=== PATIENT | male | born 1950 | race Caucasian/White ===

== ENCOUNTER 2023-04-23 20:16 | Inpatient (IN) | payer MEDICARE, OTHER ==
[~2023-04-23] VITALS: Ht 184 cm; Wt 80.5 kg
[2023-04-23 22:58] VITALS: BP 143/77
[2023-04-23] MEDS ORDERED: ACET500 PO (23:14)
[2023-04-23] MEDS ORDERED: AMLO10 PO (23:15)
[2023-04-23] MEDS ORDERED: BENZ2 PO (23:15)
[2023-04-23] MEDS ORDERED: ESCI10 PO (23:16)
[2023-04-23] MEDS ORDERED: BUPR150ER PO (23:16)
[2023-04-23] MEDS ORDERED: HALO2 PO (23:17)
[2023-04-23] MEDS ORDERED: LORA10ER PO (23:17)
[2023-04-23] MEDS ORDERED: METO25 PO (23:18)
[2023-04-23] MEDS ORDERED: OMEP20ER PO (23:19)
[2023-04-23] MEDS ORDERED: MIRALAX17 GM PO (23:19)
[2023-04-23] MEDS ORDERED: ROSU5 PO (23:20)
[2023-04-23] MEDS ORDERED: NITR100CA PO (23:29)
[2023-04-24 03:42] VITALS: BP 113/65; BP 13/65
[2023-04-24 04:07] LABS: BASOPHILS ABSOLUTE AUTO 0.02 K/mm3 (0.00-0.23); BASOPHILS PERCENT AUTO 0 % (0-2); EOSINOPHILS ABSOLUTE AUTO 0.37 K/mm3 (0.00-0.68); EOSINOPHILS PERCENT AUTO 5 % (0-6); Hematocrit 32.1 % (37.0-53.0); Hemoglobin 10.5 g/dL (13.5-17.5); IMMATURE GRAN ABSOLUTE AUTO 0.07 K/mm3 (0.00-0.10); IMMATURE GRAN PERCENT AUTO 1 % (0-1); LYMPHOCYTES ABSOLUTE AUTO 0.81 K/mm3 (0.84-5.20); LYMPHOCYTES PERCENT AUTO 10 % (21-46); MONOCYTES ABSOLUTE AUTO 0.32 K/mm3 (0.16-1.47); MONOCYTES PERCENT AUTO 4 % (4-13); Mean Corpuscular HGB 29.7 pg (26.0-34.0); Mean Corpuscular HGB Conc 32.7 g/dL (31.5-36.5); Mean Corpuscular Volume 91 fL (80-100); Mean Platelet Volume 9.5 fL (9.1-12.4); NEUTROPHILS ABSOLUTE AUTO 6.41 K/mm3 (1.96-9.15); NEUTROPHILS PERCENT AUTO 80 % (41-73); Platelet Count 229 K/mm3 (150-400); RDW Coefficient Variation 13.2 % (11.7-14.2); Red Blood Cell Count 3.54 M/mm3 (4.30-5.90)
[2023-04-24 04:38] LABS: Magnesium, Blood 2.2 mg/dL (1.6-2.4)
[2023-04-24 04:39] LABS: Albumin/Globulin Ratio 0.5 (0.8-1.8); Bilirubin, Total 0.5 mg/dL (0.1-1.0); Bun/Creatinine Ratio 14.3 (12.0-20.0); Calcium, Blood 8.4 mg/dL (8.5-10.1); Creatinine, Blood 1.89 mg/dL (0.60-1.20); Globulin, Blood 4.3 g/dL (2.2-4.0); Potassium, Blood 4.4 mmol/L (3.5-5.5); Total Protein, Blood 6.3 g/dL (6.4-8.2)
--- NOTE | 2023-04-24 05:21 | NUR ---
ARRIVAL TO PCU 19 PT ARRIVED TO PCU 19 AT APPROXIMATELY 2210. PT SLID OVER FROM AMBULANCE GURNEY TO HOSPITAL BED BY 4 CLINICAL STAFF MEMBERS. PT ARRIVED WITH CHEST TUBE IN R LATERAL CHEST WALL. UPON ARRIVAL, THIS RN AND MUNICIPAL SERVICES MANAGER CHANGED THE WATER SEAL AND DRESSING AT INSERTION SITE AND CONNECTED WATER SEAL TO CONTINUOUS SUCTION. BP STABLE, SINUS 80's, DENIES CP/PRESSURE. SpO2> 92% ON 2L VIA NC, DENIES SOB. SUPRAPUBIC CATH IN PLACE UPON ARRIVAL, CATH CARE PROVIDED, STAT LOCK PLACED. A&O TO SELF, ALMOST COMPLETELY NON-VERBAL, IS ABLE TO ANSWER YES/NO QUESTIONS AND SAY SMALL PHRASES. COOPERATIVE WITH CARE. ORIENTED TO CALL LIGHT/UNIT, BED IN LOWEST POSITION, BED ALARM ON.
--- NOTE | 2023-04-24 05:30 | NUR ---
SHIFT SUMMARY SEE PREVIOUS NOTE. CHEST TUBE IN R LATERAL CHEST WALL REMAINED IN PLACE AND PATENT. SpO2> 92% ON 2L VIA NC, DENIES SOB. BP STABLE, SINUS 80's, DENIES CP/PRESSURE. SUPRAPUBIC CATH IN PLACE UPON ARRIVAL, CATH CARE PROVIDED, STAT LOCK PLACED. A&O TO SELF, ALMOST COMPLETELY NON-VERBAL, IS ABLE TO ANSWER YES/NO QUESTIONS AND SAY SMALL PHRASES. COOPERATIVE WITH CARE. NO OTHER EVENTS, WILL REPORT TO ONCOMING RN.
[2023-04-24 07:43] VITALS: BP 115/66
[2023-04-24 11:24] VITALS: BP 113/66
--- NOTE | 2023-04-24 11:28 | NUR ---
AM NOTES: PT ONLY ALERT TO SELF MANAGER PROPERTY ONLY STATE FIRST NAME, ANSWERS MOSTLY CLOSE ENDED QUESTIONS, PER CAREGIVER KAILEY THAT'S PT'S BASELINE UNABLE TO CONSENT FOR CHEST TUBE PLACEMENT PROCEDURE BROTHER SALVATORE (POA) CONSENTED THE PROCEDURE. ANOTHER CHEST TUBE PLACED AT RIGHT UPPER ANTERIOR HOOKED UP TO CONTINUOUS SUCTION BUBBLING AT TIMES ESPECIALLY WHEN PT IS REPOSITIONED. ST VISHAL ORDERED PT ON PUREE AND THICKENED DIET AT BASELINE, BEDSIDE SWALLOW EVAL DONE AFTER ORAL CARE THIS MORNING, PT HAD A GAGGING ANG COUGHING EPISODE, PER CAREGIVER PT NORMALLY COUGH WITH HIS FOODS. PT KEPT NPO AT THIS TIME. SOAP SUDS ENEMA ORDERED FOR STOOL IMPACTION. VITALS HAS BEEN STABLE HRR SR AT 90'S, SBP 115. SATS ABOVE 90% ON RA, AFEBRILE. SUPRAPUBIC CATHETER IN PLACE DRAINING YELLOW URINE. PT RESTING IN BED AT THIS TIME, WILL CONTINUE TO MONITOR
[2023-04-24 15:33] VITALS: BP 101/60
--- NOTE | 2023-04-24 18:09 | NUR ---
PT SUMMARY: SEE AM NOTES: PT HAD AN EXTRA LARGE BOWEL MOVEMENT AFTER THE SOAP SUDS ENEMA, PT HAS BEEN TOLERATING DIET WITH GREAT APPETITE, SUPRAPUBIC LARSON REMAINED INTACT DRAINED 650MLS OF LINSEY URINE FOR THE SHIFT, 2 CHEST TUBES DRAINING SEROUS FLUID BOTH HOOKED UP TO SUCTION REPEAT CHEST RAY IN AM. PT WAS MEDICATED ONCE WITH TYLENOL FOR CHEST/RIB PAIN, PT RESTED WELL AFTER. BROTHER SALVATORE CAME IN TO VISIT THE PT, WAS GIVEN UPDATE REGARDING PT'S STATUS. VITALS REMAINED STABLE. PT HAS BEEN REPOSITIONED Q2HRS FOR COMFORT. NO OTHER ISSUES REPORTED, CALL LIGHTS IN REACH WILL REPORT TO ONCOMING SHIFT
[2023-04-24 20:37] VITALS: BP 117/70
[2023-04-24 23:14] VITALS: BP 102/64
[2023-04-25 03:17] VITALS: BP 110/65
[2023-04-25 04:45] LABS: Albumin, Blood 1.9 g/dL (3.4-5.0); Anion Gap 4 mmol/L (6-16); Blood Urea Nitrogen 32 mg/dL (8-24); Bun/Creatinine Ratio 13.9 (12.0-20.0); CO2, Blood 25 mmol/L (21-32); Calcium, Blood 8.4 mg/dL (8.5-10.1); Chloride, Blood 111 mmol/L (98-108); Glomerular Filtration Rate 30 (60-); Glucose, Blood 101 mg/dL (70-99); Phosphorus, Blood 3.9 mg/dL (2.5-4.9); Potassium, Blood 4.5 mmol/L (3.5-5.5); Sodium, Blood 140 mmol/L (136-145)
--- NOTE | 2023-04-25 05:16 | NUR ---
SHIFT SUMMARY CHEST TUBES IN R LATERAL AND R ANTERIOR CHEST WALL REMAINED IN PLACE AND PATENT. SpO2> 92% RA, DENIES SOB. BP STABLE, SINUS 80's, DENIES CP/PRESSURE. SUPRAPUBIC CATH PATENT, CATH CARE PROVIDED, DRAINING TO GRAVITY. NO BM THIS SHIFT. A&O TO SELF, PERSON, AND PLACE; ALMOST COMPLETELY NON-VERBAL, IS ABLE TO ANSWER YES/NO QUESTIONS AND SAY SMALL PHRASES. COOPERATIVE WITH CARE. NO OTHER EVENTS, WILL REPORT TO ONCOMING RN.
[2023-04-25 08:15] VITALS: BP 118/74
[2023-04-25 12:34] VITALS: BP 110/63
[2023-04-25 15:24] VITALS: BP 104/64
--- NOTE | 2023-04-25 17:43 | NUR ---
SHIFT SUMMARY SLEEPS WHEN NOT IN ROOM. WAKES EASILY. ABLE TO ANSWER SOME YES OR NO QUESTIONS. UNABLE TO ANSWER MOST ORIENTATION QUESTIONS. TELE NSR 80'S, BP STABLE. ROOM AIR. CHEST TUBE TO RIGHT UPPER CHEST WALL AND RIGHT LATERAL CHEST WALL. NO CREPITUS, NO AIR LEAK. LS DIM TO RIGHT SIDE, NO WHEEZE. TOLERATING SOFT DIET AND THICKENED LIQUIDS PER SPEECH THERAPY. REPOSITIONED Q2 IN BED. NO BM THIS SHIFT, BOWEL CARE CONTINUES. CHRONIC SUPRAPUBIC CATH DRAINING CLEAR YELLOW URINE. DR DAVE ROUNDED ON PATIENT, PLAN FOR POSSIBLY REMOVING ONE OR BOTH CHEST TUBES TOMORROW 04/26/23. PNEUMO IMPROVING ON XRAY FROM YESTERDAY. WILL REPORT TO PHOTOCOPYING EQUIPMENT REPAIRER RN.
[2023-04-25 20:23] VITALS: BP 105/71
--- NOTE | 2023-04-25 21:53 | NUR ---
CARE ASSUMPTION this rn assumed care at 1900. vital signs stable. tele sr. patient is alert and oriented x3. patient is aware that he is at the hospital in [place], but unable to tell this rn why. patient reports no pain, chest pain, or shortness of breath. patient has two chest tubes to right lung, lateral and anterior. patient has suprabupic catheter, that is draining toney/yellow urine. see shift assessment for further detials. plan of care is up to date.
[2023-04-25 23:15] VITALS: BP 114/70
[2023-04-26 03:22] VITALS: BP 110/65
[2023-04-26 04:11] LABS: Anion Gap 4 mmol/L (6-16); Blood Urea Nitrogen 33 mg/dL (8-24); Bun/Creatinine Ratio 13.3 (12.0-20.0); CO2, Blood 26 mmol/L (21-32); Calcium, Blood 8.7 mg/dL (8.5-10.1); Chloride, Blood 110 mmol/L (98-108); Creatinine, Blood 2.48 mg/dL (0.60-1.20); Glomerular Filtration Rate 27 (60-); Glucose, Blood 101 mg/dL (70-99); Phosphorus, Blood 4.1 mg/dL (2.5-4.9); Potassium, Blood 4.5 mmol/L (3.5-5.5); Sodium, Blood 140 mmol/L (136-145)
--- NOTE | 2023-04-26 05:03 | NUR ---
shift summary patient neuro remains unchaged. vital signs stable. tele sr. reposition q2hour. no acute changes. plan of care remains up to date. call light within reach and bed in lowest position.
[2023-04-26 08:10] VITALS: BP 123/77
[2023-04-26 13:31] VITALS: BP 109/62
[2023-04-26 16:32] VITALS: BP 110/64
--- NOTE | 2023-04-26 17:04 | NUR ---
Spoke with Primary RN Bhavesh and discussed case. Pt failed swallow study and family would like Pt to continue PO intake and would not want PEG tube placement. Family may benefit from goals of care conversation including considering comfort care and hospice. Pt requires assistance with supervision for feeding, is incontinent of bowel, has chronice suprapubic Catheter, assistance with bathing, and dressing. Pt unable to have meaningful conversations and answers yes or no questions. Pt resting in bed with his eyes closed. Pt left undisturbed at this time. Pt appears comfortable with no S/S of distress at this time. Called and spoke with Pt's brother Atul who reports being Pt's court appointed guardian. Engaged in therapeutic conversation regarding goals of care. Brief gentle education on disease process including trajectory. Discussed considering comfort care and hospice. Educated on hospice and comfort care philosophy. Brother Atul reports this would be Pt's wishes. Atul elects to place Pt on comfort care and would like a hospice referral started for when Pt is D/C from the hospital. Spoke with Dr Aranda and discussed case. Placed comfort care order per Dr Aranda. Plan to optimize Pt before D/C from the hospital and maintenance medications will continue. Pt does not appear to be in any distress at this time. If condition changes then will consider comfort medications as needed. Palliative Care will remain available
--- NOTE | 2023-04-26 18:42 | NUR ---
SHIFT SUMMARY PATIENT SLEEPS OFTEN, WAKES EASILY, SLOW TO RESPOND, ONE-WORD ANSWERS, SHORT PHRASES, NEVER SPEAKS IN FULL SENTENCES. LATERAL CHEST TUBE DC'D BY AYAKA DAVE AT BEDSIDE. APICAL CHEST TUBE PLACED TO WATER SEAL. CXR ORDERED FOR AM. DR SIMPSON TO ROUND AND REMOVE CHEST TUBE IF AM CXR LOOKS GOOD, DR DAVE RECOMMENDS CXR CHECKED AFTER REMOVAL WELL. THEN OKAY TO DISCHARGE FROM SURGERY STANDPOINT. SPEECH CONDUCTED A BARIUM SWALLOW, SWALLOW FUNCTION IS VERY POOR AND FOOD STICKS IN ESOPHAGUS. RECOMMENDS NPO. SPEECH CALLED TOYCARLOS AND BROTHER "SALVATORE" WHO STATED THEY WOULD NOT PURSUE PEG TUBE OR OTHER MEANS OF NUTRITION. PALLIATIVE CARE CONSULTED, SPOKE WITH BROTHER, MAGALYS COMPLETED AND SIGNED BY DR LEWIS, PATIENT MADE COMFORT CARE SO THAT HE CAN CONTINUE HIS PUREED DIET DESPITE HIGH ASPIRATION RISK. PATIENT DOES FEED HIMSELF AFTER SET UP AND HAS GOOD APPETITE. WORKED WELL WITH PT/OT. SBA WITH FWW UP TO CHAIR. SUPRAPUBIC CATH DRAINING TO GRAVITY CLEAR YELLOW URINE. ATTENDS IN PLACE. NEW IV PLACED AND IV FLUID RUNNING FOR LOW KIDNEY FUNCTION. THE [facility] HE LIVES IS ABLE AND WILLING TO TAKE HIM BACK. DISCHARGE CAN BE ARRANGED TOMORROW 04/27/23 BY JOSE GASCA, GILBERTO DRILLING ASSISTANT. SURGICAL FLOOR STATUS, COMFORT CARE, NO TELE. WILL REPORT TO DIRECTOR OF CASEWORK SERVICES RN.
[2023-04-26 20:21] VITALS: BP 118/66
--- NOTE | 2023-04-26 22:12 | NUR ---
care assumption this rn assumed care at 1900. vital signs stable. surgical status no tele. patient is alert and oriented to place, self, and person. patient reports no pain, chest pain/pressure or shortness of breath. patient has lateral chest tube in place hooked to water seal. see shift assessment for further detials. plan of care is up to date at this time.
[2023-04-27 03:10] VITALS: BP 105/69
[2023-04-27 04:20] LABS: Anion Gap 3 mmol/L (6-16); Blood Urea Nitrogen 30 mg/dL (8-24); Bun/Creatinine Ratio 14.5 (12.0-20.0); CO2, Blood 25 mmol/L (21-32); Calcium, Blood 8.1 mg/dL (8.5-10.1); Chloride, Blood 112 mmol/L (98-108); Creatinine, Blood 2.07 mg/dL (0.60-1.20); Glomerular Filtration Rate 34 (60-); Glucose, Blood 99 mg/dL (70-99); Phosphorus, Blood 3.9 mg/dL (2.5-4.9); Potassium, Blood 4.7 mmol/L (3.5-5.5); Sodium, Blood 140 mmol/L (136-145)
--- NOTE | 2023-04-27 06:14 | NUR ---
shift summary no acute changes this shift. vitals remain stable. lateral chest tube remains in place, water seal. suprapubic catheter in place draining to gravity. plan of care remains up to date
[2023-04-27 07:41] VITALS: BP 134/81
--- NOTE | 2023-04-27 17:57 | NUR ---
UPDATE PT REMAINS AWAKE AND ALERT. VS STABLE. PT HAS DENIED PAIN ALL SHIFT. DR. SIMPSON IN THIS AM AND REMOVED CHEST TUBE. PETROLEUM DRESSING APPLIED AND HAS REMAINS C/D/I. PT HAS BEEN STABLE AND NO COMPLICATIONS SINCE CHEST TUBE REMOVAL. ORDERS FOR DISCHARGE ON HOSPICE THIS AM. CARE MANAGEMENT IN COMMUNICATION WITH [facility] THAT PT LIV[facility] IN AND COORDINATED DISCHARGE. TRANSPORTATION TO BE HERE WITHIN 10 MINUTES. PT'S POA NOTIFIED.
== END 2023-04-27 18:13 | disposition hospice, home (50) | DRG 200 ==
LOC: PCU 20:16
PROVIDERS: Internal Medicine; ADMIT Student in an Organized Health Care Education/Training Program
PROC: 0W9930Z Drainage of Right Pleural Cavity with Drainage Device, Percutaneous Approach (ICD-10-PCS; principal; 2023-04-24)
DX: S27.0XXA Traumatic pneumothorax, initial encounter (principal); S22.41XA Multiple fractures of ribs, right side, initial encounter for closed fracture; W19.XXXA Unspecified fall, initial encounter; R13.12 Dysphagia, oropharyngeal phase; G30.9 Alzheimer's disease, unspecified; F02.80 Dementia in other diseases classified elsewhere, unspecified severity, without behavioral disturbance, psychotic disturbance, mood disturbance, and anxiety; G20.A1 Parkinson's disease without dyskinesia, without mention of fluctuations; Z51.5 Encounter for palliative care; Z66 Do not resuscitate; K59.00 Constipation, unspecified; N18.30 Chronic kidney disease, stage 3 unspecified; F20.9 Schizophrenia, unspecified; K21.9 Gastro-esophageal reflux disease without esophagitis; E78.5 Hyperlipidemia, unspecified; I12.9 Hypertensive chronic kidney disease with stage 1 through stage 4 chronic kidney disease, or unspecified chronic kidney disease; Z88.5 Allergy status to narcotic agent; Z88.6 Allergy status to analgesic agent
CPT/HCPCS: 36415; 71045; 74230; 80053; 80069; 83735; 85025; 92526; 92610; 92611; 94762; 97162; 97166; 97530; A9270; J2001; J7030